=== PATIENT | male | born 1965 | race African-American/Black ===

== ENCOUNTER 2019-11-05 21:35 | Emergency (ER) | payer MEDICAID ==
[~2019-11-05] VITALS: Ht 165.1 cm; Wt 70.0 kg
[~2019-11-05 21:35] MED LIST: CYCL-259 PO; ENOX40SY4 SQ; IBUP-1223 PO; METH750T2 PO; NAPR-685 PO; OXYC-307 PO; RIVA20TA PO; WARF5TAB PO; WARF6TAB47 PO
[2019-11-05 21:38] VITALS: BP 104/72
--- NOTE | 2019-11-05 23:51 | NUR ---
PT MOVED TO ROOM 2. REPORT RECEIVED FROM TYSHAWN ACKERMAN. ASSUMED CARE OF PT. PT RESTING ON GURNEY WITH EYES CLOSED. AROUSES TO VERBAL STIMULI. DENIES ANY NEEDS AT THIS TIME. AWAITING PT TO SOBER UP FOR RE EVALUATION
--- NOTE | 2019-11-06 00:44 | NUR ---
PT CONTINUES TO SLEEP, AROUSES EASILY. SITTER OUTSIDE DOOR MONITORING PT
[2019-11-06 01:36] LABS: MEAN CORPUSCULAR HEMOGLOBIN 31.9 pg (27.5-34.5); MEAN CORPUSCULAR HGB CONC 32.8 g/dL (33.2-36.2); MEAN CORPUSCULAR VOLUME 97.2 fL (81-97); MEAN PLATELET VOLUME 7.7 fL (7.4-10.4); PLATELET COUNT 344 x10^3/uL (130-400); RED BLOOD COUNT 4.54 x10^6/uL (4.38-5.82); RED CELL DISTRIBUTION WIDTH 13.3 % (9.4-14.8)
[2019-11-06 01:40] LABS: ALBUMIN 3.2 g/dL (3.4-5.0); ANION GAP 8 mmol/L (5-15); CALCIUM 8.6 mg/dL (8.5-10.1); CHLORIDE 109 mmol/L (98-107); CREATININE 0.68 mg/dL (0.7-1.3)
[2019-11-06 01:42] LABS: SALICYLATE LEVEL < 1.7 mg/dL (2.8-20.0)
[2019-11-06 02:28] LABS: BASOPHILS # (AUTO) 0.03 x10^3/uL (0-0.1); BASOPHILS % (AUTO) 1 % (0-1); EOSINOPHILS # (AUTO) 0.13 x10^3/uL (0-0.4); EOSINOPHILS % (AUTO) 3 % (1-7); LYMPHOCYTES # (AUTO) 2.48 x10^3/uL (1-3.4); LYMPHOCYTES % (AUTO) 60 % (22-44); MD SCAN; MONOCYTES # (AUTO) 0.52 x10^3/uL (0.2-0.8); MONOCYTES % (AUTO) 13 % (2-9); NEUTROPHILS # (AUTO) 0.98 x10^3/uL (1.8-6.8); NEUTROPHILS % (AUTO) 24 % (42-75)
== END 2019-11-06 01:36 | disposition home or self-care (01) ==
LOC: ED 11-06 01:21
DX: R45.851 Suicidal ideations (principal); F10.120 Alcohol abuse with intoxication, uncomplicated; Y90.0 Blood alcohol level of less than 20 mg/100 ml; I10 Essential (primary) hypertension
CPT/HCPCS: 36415; 80048; 80307; 82040; 85025; 99283; 99284

== ENCOUNTER 2019-11-09 16:19 | Emergency (ER) | payer MEDICAID ==
[~2019-11-09] VITALS: Ht 167.6 cm; Wt 75.0 kg
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
--- NOTE | 2019-11-09 17:43 | NUR ---
PT TO RAD VSS.
--- NOTE | 2019-11-09 18:05 | NUR ---
XR WNL [id number]
[2019-11-09 19:01] VITALS: BP 101/58
== END 2019-11-09 19:13 | disposition home or self-care (01) ==
LOC: ED 16:46
DX: S80.01XA Contusion of right knee, initial encounter (principal); I10 Essential (primary) hypertension; W19.XXXA Unspecified fall, initial encounter; Y93.89 Activity, other specified; Y92.488 Other paved roadways as the place of occurrence of the external cause; Y99.8 Other external cause status
CPT/HCPCS: 71045; 93005; 99283

== ENCOUNTER 2019-12-03 18:40 | Emergency (ER) | payer MEDICAID ==
[~2019-12-03] VITALS: Ht 167.6 cm; Wt 79.5 kg
[2019-12-03 18:57] VITALS: BP 137/84
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
--- NOTE | 2019-12-03 20:06 | NUR ---
Pt in room 2 and doors secured. All belongings of pt in locker. Sitter in hallway.
--- NOTE | 2019-12-03 21:37 | NUR ---
Patient resting in [facility] with no complaints. Room secured. Sitter outside.
--- NOTE | 2019-12-03 22:26 | NUR ---
Patient sleeping in [facility]. Respirations even and unlabored. Room secured. Sitter outside.
--- NOTE | 2019-12-03 23:34 | NUR ---
Patient sleeping in [facility]. Respirations even and unlabored. Room secured. Sitter outside.
--- NOTE | 2019-12-04 00:22 | NUR ---
Patient sleeping in [facility]. Respirations even and unlabored. Room secured. Sitter outside.
--- NOTE | 2019-12-04 00:47 | NUR ---
Pt awokened and asked if feeling si/hi. Pt denies any si/hi. "i was just mad and i was sayin stuff i didnt mean." aware. Pt tbdc.
--- NOTE | 2019-12-04 01:17 | NUR ---
Pt insistent on stating he came in w/ a wheelchair. Multiple staff referenced and security informed and said they checked cameras. Pt did not arrive w/ a wheelchair.
== END 2019-12-04 00:55 | disposition home or self-care (01) ==
LOC: ED 12-04 00:05
DX: F10.220 Alcohol dependence with intoxication, uncomplicated (principal); I10 Essential (primary) hypertension; Y90.9 Presence of alcohol in blood, level not specified
CPT/HCPCS: 99283

== ENCOUNTER 2019-12-04 22:35 | Emergency (ER) | payer MEDICAID ==
[~2019-12-04] VITALS: Ht 170.2 cm; Wt 75.0 kg
[2019-12-04] MEDS ORDERED: KETOROLAC 30 MG/1 ML IM ONE (23:00)
[2019-12-04] MEDS ORDERED: KETOROLAC 30 MG/1 ML ONE (23:12)
[2019-12-05 01:00] VITALS: BP 132/74
--- NOTE | 2019-12-05 01:28 | NUR ---
REPORT RECEIVED FROM TYSHAWN MUSA. ASSUMED CARE OF PT
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
== END 2019-12-05 02:47 | disposition home or self-care (01) ==
LOC: ED 12-05 02:10
DX: M54.5 Low back pain (principal); F10.229 Alcohol dependence with intoxication, unspecified; G89.29 Other chronic pain; I11.9 Hypertensive heart disease without heart failure; Y90.9 Presence of alcohol in blood, level not specified
CPT/HCPCS: 96372; 99283; J1885

== ENCOUNTER 2019-12-07 15:48 | Emergency (ER) | payer MEDICAID ==
[~2019-12-07] VITALS: Ht 167.6 cm; Wt 75.0 kg
[2019-12-07 15:58] VITALS: BP 141/88
--- NOTE | 2019-12-07 16:05 | NUR ---
PT FABIOLA ROCK, FOUND ON [facility] INTOXICATED AND CRYING. PT ENDORSING SI TO EMS. PT STATES TO THIS RN "IM SCARED TO ALONE BUT I GUESS I WILL" PT DENIES PLAN. PT STATES THAT HE HAS HAD APPROX 25 BEERS TODAY. DENIES DRUG USE
--- NOTE | 2019-12-07 17:10 | NUR ---
ERMD IN TO EVAL PT. PT ROSE 0.324 AT THIS TIME, WILL RE-EVAL PER ERMD IN A COUPLE HOURS. ORDERS RECEIVED. Addendum: 12/07/19 at 1719 by AMCIVANIA PT MOVED TO SECURE WITH SITTER IN PLACE, ALL BELONGINGS PLACED IN LOCKER, 2 BAGS TOTAL. PT GIVEN WARM BLANKET
[2019-12-07 17:45] LABS: BASOPHILS # (AUTO) 0.02 x10^3/uL (0-0.1); BASOPHILS % (AUTO) 0 % (0-1); EOSINOPHILS # (AUTO) 0.34 x10^3/uL (0-0.4); EOSINOPHILS % (AUTO) 6 % (1-7); LYMPHOCYTES # (AUTO) 2.88 x10^3/uL (1-3.4); LYMPHOCYTES % (AUTO) 53 % (22-44); MD NO; MEAN CORPUSCULAR HEMOGLOBIN 31.1 pg (27.5-34.5); MEAN CORPUSCULAR HGB CONC 32.7 g/dL (33.2-36.2); MEAN PLATELET VOLUME 7.8 fL (7.4-10.4); MONOCYTES % (AUTO) 9 % (2-9); NEUTROPHILS # (AUTO) 1.65 x10^3/uL (1.8-6.8); NEUTROPHILS % (AUTO) 31 % (42-75); PLATELET COUNT 320 x10^3/uL (130-400); RED BLOOD COUNT 4.85 x10^6/uL (4.38-5.82); RED CELL DISTRIBUTION WIDTH 13.8 % (9.4-14.8)
[2019-12-07 17:50] LABS: ALANINE AMINOTRANSFERASE 21 U/L (12-78); ALBUMIN 3.5 g/dL (3.4-5.0); ANION GAP 7 mmol/L (5-15); CALCIUM 8.5 mg/dL (8.5-10.1); CHLORIDE 110 mmol/L (98-107); CREATININE 0.84 mg/dL (0.7-1.3)
[2019-12-07 17:52] LABS: ALKALINE PHOSPHATASE 67 U/L (45-117); BILIRUBIN,TOTAL 0.2 mg/dL (0.2-1.0); TOTAL PROTEIN 9.1 g/dL (6.4-8.2)
--- NOTE | 2019-12-07 18:15 | NUR ---
PT RESTING ON STEPHANIE MARI NOTED AT THIS TIME. MEAL TRAY ORDERED FOR PT
[2019-12-07 18:17] LABS: SALICYLATE LEVEL < 1.7 mg/dL (2.8-20.0)
--- NOTE | 2019-12-07 18:55 | NUR ---
REPORT FROM AVEL VILLAGRAN, ASSUMING CARE OF PT
--- NOTE | 2019-12-07 19:24 | NUR ---
PT RESTING ON GURNEY WITH FOOD TRAY. PT REQUESTING CLOTHES AND TO LEAVE, UPDATED STS WHEN PT IS ABLE TO WALK SAFELY HE WILL BE ABLE TO GO HOME
[2019-12-07 19:39] LABS: AMPHETAMINE SCREEN, URINE Negative (Negative); BARBITURATE SCREEN, URINE Negative (Negative); BENZODIAZEPINE SCREEN, URINE Negative (Negative); CANNABINOID SCREEN, URINE Negative (Negative); COCAINE SCREEN, URINE Negative (Negative); METHADONE SCREEN, URINE Negative (Negative); OPIATE SCREEN, URINE Negative (Negative)
--- NOTE | 2019-12-07 20:05 | NUR ---
PT REQUESTING BELONGINGS AND TO LEAVE, PT INFORMED THAT ONCE SOBER ENOUGH TO WALK SAFELY PT WILL BE D/C. PT AGREEABLE TO PLAN
--- NOTE | 2019-12-07 21:12 | NUR ---
ATTEMPTED TO AMBULATE PT UNABLE TO AMB W/O ASSIST, PT REQ "PAIN PILLS OR STARWARS SHOTS." PT INFORMED NO ORDERS FOR MEDICATIONS AT THIS TIME. PT BACK TO BED
--- NOTE | 2019-12-07 22:23 | NUR ---
PT LAYING ON AARON MARI AT RN "WHEN WILL GET SOME MUSCLE RELAXERS? DO I HAVE TO BEG FOR IT." PT INFORMED NO ORDERS FOR MEDS AT THIS TIME.
--- NOTE | 2019-12-08 01:14 | NUR ---
PT SUCCESSFULLY AMB TO RESTROOM AND BACK TO BED WITH NO ASSIST. MD UPDATED. MD TO SEE PRIOR TO DC
== END 2019-12-08 01:33 | disposition home or self-care (01) ==
LOC: ED 21:45
DX: F10.220 Alcohol dependence with intoxication, uncomplicated (principal); I10 Essential (primary) hypertension; G89.29 Other chronic pain; R45.851 Suicidal ideations; F32.9 Major depressive disorder, single episode, unspecified; Y90.0 Blood alcohol level of less than 20 mg/100 ml
CPT/HCPCS: 36415; 80053; 80307; 85025; 99283

== ENCOUNTER 2019-12-09 03:49 | Emergency (ER) | payer MEDICAID ==
[~2019-12-09] VITALS: Ht 172.7 cm; Wt 68.0 kg
[2019-12-09 04:13] VITALS: BP 132/88
--- NOTE | 2019-12-09 05:09 | NUR ---
all belongings in 3 bags and removed from pt. placed in belongings locker. sitter at bedside for frequent checks. Addendum: 12/09/19 at 0634 by CATHI 2 bags in belongings locker, labeled.
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
[2019-12-09 05:29] LABS: BASOPHILS # (AUTO) 0.03 x10^3/uL (0-0.1); BASOPHILS % (AUTO) 1 % (0-1); EOSINOPHILS # (AUTO) 0.33 x10^3/uL (0-0.4); EOSINOPHILS % (AUTO) 7 % (1-7); LYMPHOCYTES # (AUTO) 2.43 x10^3/uL (1-3.4); LYMPHOCYTES % (AUTO) 49 % (22-44); MD NO; MEAN CORPUSCULAR HEMOGLOBIN 31.3 pg (27.5-34.5); MEAN CORPUSCULAR VOLUME 94.7 fL (81-97); MEAN PLATELET VOLUME 7.1 fL (7.4-10.4); MONOCYTES # (AUTO) 0.39 x10^3/uL (0.2-0.8); MONOCYTES % (AUTO) 8 % (2-9); NEUTROPHILS # (AUTO) 1.79 x10^3/uL (1.8-6.8); NEUTROPHILS % (AUTO) 36 % (42-75); PLATELET COUNT 293 x10^3/uL (130-400); RED BLOOD COUNT 4.74 x10^6/uL (4.38-5.82); RED CELL DISTRIBUTION WIDTH 13.8 % (9.4-14.8)
[2019-12-09 05:38] LABS: ALBUMIN 3.4 g/dL (3.4-5.0); ANION GAP 7 mmol/L (5-15); CALCIUM 8.7 mg/dL (8.5-10.1); CHLORIDE 108 mmol/L (98-107)
[2019-12-09 05:42] LABS: ALANINE AMINOTRANSFERASE 20 U/L (12-78); ALKALINE PHOSPHATASE 67 U/L (45-117); BILIRUBIN,TOTAL 0.4 mg/dL (0.2-1.0); CREATININE 0.77 mg/dL (0.7-1.3); SALICYLATE LEVEL < 1.7 mg/dL (2.8-20.0); TOTAL PROTEIN 9.1 g/dL (6.4-8.2)
[2019-12-09 06:07] LABS: AMPHETAMINE SCREEN, URINE Negative (Negative); BARBITURATE SCREEN, URINE Negative (Negative); BENZODIAZEPINE SCREEN, URINE Negative (Negative); CANNABINOID SCREEN, URINE Negative (Negative); COCAINE SCREEN, URINE Negative (Negative); METHADONE SCREEN, URINE Negative (Negative); OPIATE SCREEN, URINE Negative (Negative)
--- NOTE | 2019-12-09 06:34 | NUR ---
pt resting on gurney with eyes closed. sitter at doorway for frequent checks.
--- NOTE | 2019-12-09 06:57 | NUR ---
report receivef from Tami frost.
[2019-12-09] MEDS ORDERED: KETOROLAC 30 MG/1 ML ONE (07:11)
--- NOTE | 2019-12-09 07:20 | NUR ---
pt medicated per emar. pt tolerated well.
--- NOTE | 2019-12-09 07:20 | NUR ---
Patient given discharge instructions and they have confirmed that they understand the instructions. taxi voucher given at dc. pt's belongings(2bags with cane) given at dc.
[2019-12-09] MEDS ORDERED: KETOROLAC 60 MG/2 ML IM ONE (07:30)
== END 2019-12-09 07:23 | disposition home or self-care (01) ==
LOC: ED 07:12
DX: F10.220 Alcohol dependence with intoxication, uncomplicated (principal); R45.851 Suicidal ideations; Z59.0 Homelessness; I10 Essential (primary) hypertension; G89.29 Other chronic pain; Y90.9 Presence of alcohol in blood, level not specified
CPT/HCPCS: 36415; 80053; 80307; 85025; 96372; 99283; J1885

== ENCOUNTER 2019-12-09 11:53 | Emergency (ER) | payer MEDICAID ==
[~2019-12-09] VITALS: Ht 170.2 cm; Wt 79.0 kg
[2019-12-09 11:53] VITALS: BP 164/100
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
--- NOTE | 2019-12-09 12:28 | NUR ---
report given to irasema
--- NOTE | 2019-12-09 13:00 | NUR ---
restraint order paper given to edmd.
[2019-12-09 13:05] LABS: BASOPHILS # (AUTO) 0.08 x10^3/uL (0-0.1); BASOPHILS % (AUTO) 2 % (0-1); EOSINOPHILS # (AUTO) 0.27 x10^3/uL (0-0.4); EOSINOPHILS % (AUTO) 5 % (1-7); LYMPHOCYTES # (AUTO) 1.92 x10^3/uL (1-3.4); LYMPHOCYTES % (AUTO) 37 % (22-44); MD NO; MEAN CORPUSCULAR HEMOGLOBIN 31.4 pg (27.5-34.5); MEAN CORPUSCULAR HGB CONC 33.5 g/dL (33.2-36.2); MEAN CORPUSCULAR VOLUME 93.8 fL (81-97); MEAN PLATELET VOLUME 7.3 fL (7.4-10.4); MONOCYTES # (AUTO) 0.59 x10^3/uL (0.2-0.8); MONOCYTES % (AUTO) 12 % (2-9); NEUTROPHILS # (AUTO) 2.27 x10^3/uL (1.8-6.8); NEUTROPHILS % (AUTO) 44 % (42-75); PLATELET COUNT 276 x10^3/uL (130-400); RED BLOOD COUNT 4.61 x10^6/uL (4.38-5.82); RED CELL DISTRIBUTION WIDTH 13.6 % (9.4-14.8)
[2019-12-09 13:16] LABS: ALBUMIN 3.3 g/dL (3.4-5.0); ANION GAP 8 mmol/L (5-15); CALCIUM 8.4 mg/dL (8.5-10.1); CHLORIDE 107 mmol/L (98-107); CREATININE 0.68 mg/dL (0.7-1.3)
[2019-12-09 13:18] LABS: SALICYLATE LEVEL < 1.7 mg/dL (2.8-20.0)
--- NOTE | 2019-12-09 13:36 | NUR ---
diet tray ordered per pt's request.
--- NOTE | 2019-12-09 13:43 | NUR ---
pt is calm/cooperative at this time. 4pts restraints removed by security at this time. urinal at bedside.
--- NOTE | 2019-12-09 13:57 | NUR ---
meal tray provided at this time.
--- NOTE | 2019-12-09 14:41 | NUR ---
pt sleeping in [place]. resps even and unlabored. room remains secure. sitter monitoring from hallway for safety.
--- NOTE | 2019-12-09 15:34 | NUR ---
pt sleeping in [place]. resps even and unlabored. room remains secure. sitter monitoring from hallway for safety.
--- NOTE | 2019-12-09 15:54 | NUR ---
PT IS NOT ABLE TO PROVIDE URINE SAMPLE STILL. URINAL AT BEDSIDE.
--- NOTE | 2019-12-09 16:50 | NUR ---
PT IS TRYING TO URINATE AT THIS TIME.
--- NOTE | 2019-12-09 17:07 | NUR ---
PT STATES " I CAN'T PEE." SOME WATER PROVIDED AT THIS TIME.
--- NOTE | 2019-12-09 17:08 | NUR ---
MEAL TRAY ORDERD AT THIS TIME.
--- NOTE | 2019-12-09 17:47 | NUR ---
MEAL TRAY PROVIDED AT THIS TIME.
--- NOTE | 2019-12-09 18:25 | NUR ---
PT AMB TO BR AND TRIED TO URINATE. PT IS NOT ABLE TO PROVIDE URINE SAMPLE STILL.
--- NOTE | 2019-12-09 18:50 | NUR ---
REPORT GIVEN TO JULIET VILLAGRAN.
--- NOTE | 2019-12-09 19:48 | NUR ---
Pt laying in bed, watching tv at this time. Pt in no distress.
--- NOTE | 2019-12-09 20:52 | NUR ---
Breathalyzer performed, pt at 0.093
--- NOTE | 2019-12-09 22:45 | NUR ---
Breathalyzer performed, pt at 0.035
[2019-12-09 23:07] LABS: AMPHETAMINE SCREEN, URINE Negative (Negative); BARBITURATE SCREEN, URINE Negative (Negative); BENZODIAZEPINE SCREEN, URINE Negative (Negative); CANNABINOID SCREEN, URINE Negative (Negative); COCAINE SCREEN, URINE Negative (Negative); METHADONE SCREEN, URINE Negative (Negative); OPIATE SCREEN, URINE Negative (Negative)
== END 2019-12-10 00:24 | disposition home or self-care (01) ==
LOC: ED 17:04
DX: R45.851 Suicidal ideations (principal); F10.120 Alcohol abuse with intoxication, uncomplicated; I10 Essential (primary) hypertension; F17.200 Nicotine dependence, unspecified, uncomplicated; Y90.9 Presence of alcohol in blood, level not specified
CPT/HCPCS: 36415; 80048; 80307; 82040; 85025; 99284; 99285

== ENCOUNTER 2020-01-04 20:58 | Emergency (ER) | payer MEDICAID ==
[~2020-01-04] VITALS: Ht 177.8 cm; Wt 70.0 kg
[2020-01-04 21:04] VITALS: BP 153/93
--- NOTE | 2020-01-04 21:17 | NUR ---
ERP at bedside
--- NOTE | 2020-01-04 21:23 | NUR ---
carpenter/labor at bedside for blood draw.
[2020-01-04 21:33] LABS: MEAN CORPUSCULAR HEMOGLOBIN 30.8 pg (27.5-34.5); MEAN CORPUSCULAR HGB CONC 33.2 g/dL (33.2-36.2); MEAN CORPUSCULAR VOLUME 92.7 fL (81-97); MEAN PLATELET VOLUME 7.1 fL (7.4-10.4); PLATELET COUNT 396 x10^3/uL (130-400); RED BLOOD COUNT 4.59 x10^6/uL (4.38-5.82); RED CELL DISTRIBUTION WIDTH 14.3 % (9.4-14.8)
[2020-01-04 21:34] LABS: BASOPHILS # (AUTO) 0.06 x10^3/uL (0-0.1); BASOPHILS % (AUTO) 1 % (0-1); EOSINOPHILS # (AUTO) 0.14 x10^3/uL (0-0.4); EOSINOPHILS % (AUTO) 3 % (1-7); LYMPHOCYTES # (AUTO) 2.79 x10^3/uL (1-3.4); LYMPHOCYTES % (AUTO) 53 % (22-44); MD NO; MONOCYTES # (AUTO) 0.33 x10^3/uL (0.2-0.8); MONOCYTES % (AUTO) 6 % (2-9); NEUTROPHILS # (AUTO) 1.95 x10^3/uL (1.8-6.8); NEUTROPHILS % (AUTO) 37 % (42-75)
[2020-01-04 21:42] LABS: ALBUMIN 3.6 g/dL (3.4-5.0); ANION GAP 8 mmol/L (5-15); CALCIUM 8.5 mg/dL (8.5-10.1); CHLORIDE 106 mmol/L (98-107)
[2020-01-04 21:54] LABS: ALANINE AMINOTRANSFERASE 21 U/L (12-78); ALKALINE PHOSPHATASE 58 U/L (45-117); BILIRUBIN,TOTAL 0.2 mg/dL (0.2-1.0); CREATININE 0.77 mg/dL (0.7-1.3); TOTAL PROTEIN 9.2 g/dL (6.4-8.2)
[2020-01-04 21:57] LABS: SALICYLATE LEVEL < 1.7 mg/dL (2.8-20.0)
--- NOTE | 2020-01-04 22:42 | NUR ---
pt sleeping soundly with no complaints
--- NOTE | 2020-01-04 23:37 | NUR ---
pt sleeping soundly with no complaints
--- NOTE | 2020-01-05 01:05 | NUR ---
pt sleeping soundly with no complaints
== END 2020-01-05 04:12 | disposition home or self-care (01) ==
LOC: ED 01-05 04:06
DX: F10.120 Alcohol abuse with intoxication, uncomplicated (principal); Y90.0 Blood alcohol level of less than 20 mg/100 ml; I10 Essential (primary) hypertension
CPT/HCPCS: 36415; 80053; 80307; 85025; 99283

== ENCOUNTER 2020-06-17 09:35 | Emergency (ER) | payer MEDICAID ==
[~2020-06-17] VITALS: Ht 172.7 cm; Wt 70.0 kg
[~2020-06-17 09:35] MED LIST changes: -WARF5TAB PO; +WARF5TAB2 PO
--- NOTE | 2020-06-17 09:43 | NUR ---
PRESENTS VIA EMS FOR DIZZINESS/CHRONIC BACK PAIN EMS REPORTS HR 120, FSBS 74. PATIENT ADMITS TO LIQUOR THIS AM PATIENT REPORTS COUGH/SORE THROAT/FATIGUE-MUSCLES ACHES AND VOMITING EACH TIME HE EATS (I HAVE LOST 25LB IN LAST 6 MONTHS) ECG OBTAINED HX OF DVT (NO LONGER TAKING COUMADIN)
--- NOTE | 2020-06-17 09:43 | NUR ---
REPORT TO NAKITAADIN Addendum: 06/17/20 at 0943 by RFRUHLING REPORT TO GEN
[2020-06-17] MEDS ORDERED: ONDANSETRON 2MG/ML, 2ML ONE (10:02)
[2020-06-17 10:08] LABS: BASOPHILS # (AUTO) 0.04 x10^3/uL (0-0.1); BASOPHILS % (AUTO) 1 % (0-1); EOSINOPHILS # (AUTO) 0.15 x10^3/uL (0-0.4); EOSINOPHILS % (AUTO) 2 % (1-7); LYMPHOCYTES # (AUTO) 2.98 x10^3/uL (1-3.4); LYMPHOCYTES % (AUTO) 49 % (22-44); MD NO; MEAN CORPUSCULAR HGB CONC 33.1 g/dL (33.2-36.2); MEAN CORPUSCULAR VOLUME 93.6 fL (81-97); MEAN PLATELET VOLUME 7.4 fL (7.4-10.4); MONOCYTES % (AUTO) 16 % (2-9); NEUTROPHILS # (AUTO) 1.93 x10^3/uL (1.8-6.8); NEUTROPHILS % (AUTO) 32 % (42-75); PLATELET COUNT 279 x10^3/uL (130-400); RED BLOOD COUNT 4.62 x10^6/uL (4.38-5.82); RED CELL DISTRIBUTION WIDTH 16.9 % (9.4-14.8)
[2020-06-17 10:23] LABS: ALANINE AMINOTRANSFERASE 23 U/L (12-78); ALBUMIN 3.5 g/dL (3.4-5.0); ANION GAP 11 mmol/L (5-15); CALCIUM 8.4 mg/dL (8.5-10.1); CHLORIDE 107 mmol/L (98-107); CREATININE 0.86 mg/dL (0.7-1.3)
[2020-06-17 10:25] LABS: ALKALINE PHOSPHATASE 56 U/L (45-117); BILIRUBIN,TOTAL 0.6 mg/dL (0.2-1.0); TOTAL PROTEIN 8.5 g/dL (6.4-8.2)
[2020-06-17] MEDS ORDERED: CHLORDIAZEPOXIDE 25 MG CAPSULE ONE (10:40)
[2020-06-17] MEDS ORDERED: MAALOX/HYOSCYAMINE/LIDOCAINE 45 ML BTL ONE (10:40)
[2020-06-17] MEDS ORDERED: SODIUM CHLORIDE FLUSH 10ML SYR IVF ONE (11:00)
[2020-06-17] MEDS ORDERED: MAALOX/HYOSCYAMINE/LIDOCAINE 45 ML BTL PO ONE (11:00)
[2020-06-17] MEDS ORDERED: CHLORDIAZEPOXIDE 25 MG CAPSULE PO ONE (11:00)
[2020-06-17] MEDS ORDERED: ONDANSETRON 2MG/ML, 2ML IVPush ONE (11:00)
--- NOTE | 2020-06-17 11:04 | NUR ---
PT WALKED TO THE BATHROOM TO TRY TO GIVE URINE SAMPLE. PT UNABLE TO VOID AT THIS TIME. HE STATED THAT HE WAS UNABLE TO VOID AT THIS TIME. DR. DUVAL AND ADELE GRANDE NOTIFIED. ABD XRAY ORDERED. PER DR. DUVAL, NO NEED FOR URINE AT THIS TIME.
[2020-06-17] MEDS ORDERED: IBUP-1902 PO (11:14)
[2020-06-17] MEDS ORDERED: ACET325T14 PO (11:15)
[2020-06-17 11:35] VITALS: BP 112/79
[2020-06-17] MEDS ORDERED: FAMOTIDINE 20 MG/2 ML ONE (11:57)
[2020-06-17] MEDS ORDERED: FAMOTIDINE 20 MG/2 ML IVPush ONE (12:30)
[2020-06-17] MEDS ORDERED: KETOROLAC 30 MG/1 ML IVPush ONE (13:00)
--- NOTE | 2020-06-17 13:10 | NUR ---
Patient given discharge instructions and they have confirmed that they understand the instructions. Patient ambulatory with steady gait.
== END 2020-06-17 13:11 | disposition home or self-care (01) ==
LOC: ED 11:47
DX: K29.20 Alcoholic gastritis without bleeding (principal); G89.29 Other chronic pain; M54.5 Low back pain; J02.9 Acute pharyngitis, unspecified; R05 Cough; R00.0 Tachycardia, unspecified; R10.9 Unspecified abdominal pain; R11.2 Nausea with vomiting, unspecified; E11.9 Type 2 diabetes mellitus without complications; Z86.718 Personal history of other venous thrombosis and embolism
CPT/HCPCS: 36415; 71045; 74021; 80053; 83690; 85025; 93005; 96374; 96375; 99285; J2405; J3490

== ENCOUNTER 2020-11-16 13:49 | Emergency (ER) | payer MEDICAID ==
[~2020-11-16] VITALS: Ht 182.9 cm; Wt 70.0 kg
[~2020-11-16 13:49] MED LIST changes: +ACET325T14 PO; +IBUP-1902 PO
--- NOTE | 2020-11-16 16:03 | NUR ---
city magistrate note: Pt to room from lobby.
[2020-11-16] MEDS ORDERED: BACLOFEN 10 MG TABLET PO STA (16:26)
[2020-11-16] MEDS ORDERED: FAMOTIDINE 20 MG/2 ML IVPush ONE (16:30)
--- NOTE | 2020-11-16 16:31 | NUR ---
IV START, LABS DRAWN. PT SITTING UP IN BED. ASKS FOR TELEVISION TO BE TURNED ON. SIDE RAIL UP, CALL LIGHT IN REACH.
[2020-11-16] MEDS ORDERED: FAMOTIDINE 20 MG/2 ML ONE (16:37)
--- NOTE | 2020-11-16 16:46 | NUR ---
REQUEST TO PHARMACY FOR MED.
[2020-11-16 16:50] LABS: BASOPHILS % (AUTO) 1 % (0-1); EOSINOPHILS % (AUTO) 1 % (1-7); LYMPHOCYTES % (AUTO) 40 % (22-44); MEAN CORPUSCULAR HGB CONC 34.1 g/dL (33.2-36.2); MEAN PLATELET VOLUME 7.3 fL (7.4-10.4); MONOCYTES % (AUTO) 16 % (2-9); NEUTROPHILS % (AUTO) 43 % (42-75); PLATELET COUNT 251 x10^3/uL (130-400)
[2020-11-16 16:55] LABS: ALANINE AMINOTRANSFERASE 26 U/L (12-78); ALBUMIN 3.9 g/dL (3.4-5.0); ANION GAP 7 mmol/L (5-15); CALCIUM 9.5 mg/dL (8.5-10.1); CHLORIDE 100 mmol/L (98-107); CREATININE 0.97 mg/dL (0.7-1.3)
[2020-11-16 16:57] LABS: ALKALINE PHOSPHATASE 68 U/L (45-117); BILIRUBIN,TOTAL 1.2 mg/dL (0.2-1.0)
--- NOTE | 2020-11-16 17:09 | NUR ---
PT REMAINS IN IMAGING. AWAITING RETURN FOR MEDICATION ADMINISTRATION.
[2020-11-16 17:17] LABS: MD NO
--- NOTE | 2020-11-16 17:27 | NUR ---
PT AWARE OF NEED FOR UA.
--- NOTE | 2020-11-16 17:55 | NUR ---
PT ASKS ABOUT BACK PAIN MEDICATION, DISCUSSION WITH ADELE NYE REGARDING PAIN. AWAITING FURTHER ORDERS.
[2020-11-16] MEDS ORDERED: HYDROcodone/APAP 5/325 TABLET PO ONE (19:00)
[2020-11-16] MEDS ORDERED: HYDROcodone/APAP 5/325 TABLET ONE (19:03)
[2020-11-16] MEDS ORDERED: OMNIPAQUE 350 MG/ML, 75ML BOTTLE ONE (19:05)
--- NOTE | 2020-11-16 19:09 | NUR ---
PT BACK FROM IMAGING. NAD NOTED AT THIS TIME RESPIRATIONS EVEN AND UNLABORED ON RA. AT BEDSIDE. PT MEDICATED PER EMAR.
--- NOTE | 2020-11-16 19:10 | NUR ---
REPORT TO TYSHAWN MUSA.
[2020-11-16 20:03] LABS: MICROSCOPIC NOT IND
[2020-11-16 20:07] VITALS: BP 129/77
--- NOTE | 2020-11-16 20:08 | NUR ---
PATIENT CLEARED FOR DISCHARGE. TAKEN TO DISCHARGE DESK VIA WHEELCHAIR. NO NOTED ACUTE DISTRESS. PATIENT VERBALIZED UNDERSTANDING OF SELF CARE AND FOLLOW UP CARE. PATIENT GIVEN PRESCRIPTIONS. VERBALIZED UNDERSTANDING.
== END 2020-11-16 20:09 | disposition home or self-care (01) ==
LOC: ED 16:59
DX: M47.816 Spondylosis without myelopathy or radiculopathy, lumbar region (principal); K20.90 Esophagitis, unspecified without bleeding; M54.41 Lumbago with sciatica, right side; E11.9 Type 2 diabetes mellitus without complications; I10 Essential (primary) hypertension; Z86.711 Personal history of pulmonary embolism
CPT/HCPCS: 36415; 71046; 71260; 72110; 80053; 81003; 83690; 84443; 85025; 86592; 96374; 99285; Q9967

== ENCOUNTER 2020-12-05 07:36 | Emergency (ER) | payer MEDICAID ==
[~2020-12-05] VITALS: Ht 180.3 cm; Wt 75.0 kg
[~2020-12-05 07:36] MED LIST changes: -CYCL-259 PO; +CYCL10TA2 PO; +METH-640 PO; -METH750T2 PO; -OXYC-307 PO; +OXYC-380 PO
[2020-12-05 08:11] LABS: MEAN CORPUSCULAR HEMOGLOBIN 32.5 pg (27.5-34.5); MEAN CORPUSCULAR HGB CONC 33.9 g/dL (33.2-36.2); PLATELET COUNT 286 x10^3/uL (130-400); RED BLOOD COUNT 4.38 x10^6/uL (4.38-5.82); RED CELL DISTRIBUTION WIDTH 16.4 % (9.4-14.8)
[2020-12-05 08:17] LABS: ALANINE AMINOTRANSFERASE 24 U/L (12-78); ANION GAP 5 mmol/L (5-15); CALCIUM 8.8 mg/dL (8.5-10.1); CHLORIDE 106 mmol/L (98-107); CREATININE 0.67 mg/dL (0.7-1.3)
[2020-12-05 08:19] LABS: ALKALINE PHOSPHATASE 68 U/L (45-117); BILIRUBIN,TOTAL 0.4 mg/dL (0.2-1.0)
[2020-12-05 08:20] LABS: SALICYLATE LEVEL < 1.7 mg/dL (2.8-20.0)
[2020-12-05 08:40] LABS: MD YES
[2020-12-05 08:42] LABS: BASOS#(MANUAL) 0.08 x10^3/uL (0-0.1); BASOS% (MANUAL) 2 % (0-1); EOS#(MANUAL) 0.17 x10^3/uL (0.0-0.4); EOS% (MANUAL) 4 % (1-7); LYMPH#(MANUAL) 3.02 x10^3/uL (1-3.4); LYMPHS% (MANUAL) 72 % (22-44); MONOS#(MANUAL) 0.25 x10^3/uL (0.3-2.7); MONOS% (MANUAL) 6 % (2-9); SEG#(MANUAL) 0.67 x10^3/uL (1.8-6.8); SEGS% (MANUAL) 16 % (42-75)
[2020-12-05 08:43] LABS: <PLATELET ESTIMATE> ADEQUATE; <PLT MORPHOLOGY> NORMAL PLT MORPH; ANISOCYTOSIS 1+
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
--- NOTE | 2020-12-05 10:13 | NUR ---
report recived pt resting in bed
--- NOTE | 2020-12-05 11:33 | NUR ---
pt in bed resting. breath 0.247
--- NOTE | 2020-12-05 12:06 | NUR ---
PT PROVIDED MEAL
--- NOTE | 2020-12-05 12:40 | NUR ---
Vonnie gillespie in ED - 12/05/20 at 1305 by VIVIAN PT IN BED SEEN BY PSYCH, REFERRAL TO [facility] SENT.
--- NOTE | 2020-12-05 13:06 | NUR ---
PT IN BED RESTING
--- NOTE | 2020-12-05 14:08 | NUR ---
PT IN BED RESTING. BREATHALYZER 0.206.
--- NOTE | 2020-12-05 16:00 | NUR ---
pt in bed,
--- NOTE | 2020-12-05 16:01 | NUR ---
breath 0.167. pt resting
--- NOTE | 2020-12-05 17:32 | NUR ---
TASK RN: PT VSS AND UPDATED IN EMR AT THIS TIME. PT DENIES ANY NEEDS AND HAS CALL LIGHT WITHIN REACH.
--- NOTE | 2020-12-05 18:40 | NUR ---
etoh 0.087. pt in bed no distress.
--- NOTE | 2020-12-05 18:40 | NUR ---
Vonnie gillespie in ED - 12/05/20 at 1845 by VIVIAN etoh 0.87. pt in bed no distress.
[2020-12-05 19:21] VITALS: BP 115/62
== END 2020-12-05 19:24 | disposition home or self-care (01) ==
LOC: ED 09:14
DX: F10.220 Alcohol dependence with intoxication, uncomplicated (principal); M54.5 Low back pain; I10 Essential (primary) hypertension; Y90.0 Blood alcohol level of less than 20 mg/100 ml
CPT/HCPCS: 36415; 80053; 80299; 80320; 80329; 85025; 99285; G0480